=== PATIENT | male | born 1990 | race Hispanic/Latino ===

== ENCOUNTER 2025-01-26 20:07 | Emergency (ER) | payer OTHER ==
[~2025-01-26] VITALS: Ht 170.2 cm; Wt 112.6 kg
[2025-01-26] MEDS ORDERED: COREG6.25 MG PO (20:17)
[2025-01-26] MEDS ORDERED: ALPRAZOLAM2 MG PO (20:17)
[2025-01-26] MEDS ORDERED: HYDROCHLOROTH12.5 MG PO (20:17)
[2025-01-26] MEDS ORDERED: COZAAR50 MG PO (20:17)
[2025-01-26] MEDS ORDERED: FARXIGA10 MG PO (20:18)
[2025-01-26] MEDS ORDERED: LIPITOR10 MG GT (20:18)
[2025-01-26 20:25] LABS: BASOPHILS 0.6 % (0.2-1.2); EOSINOPHILS 1.5 % (0.8-7.0); LYMPHOCYTES 17.9 % (21.8-53.1); MCH 27.5 PG (25.7-32.2); MCHC 31.8 g/dL (32.3-36.5); MCV 86.4 fL (79.0-92.2); MONOCYTES 7.3 % (5.3-12.2); NEUTROPHILS 72.0 % (34.0-67.9); RBC 5.53 M/uL (4.63-6.08)
[2025-01-26] MEDS ORDERED: ASPIRIN 81 MG CHEW PO ONE (20:30)
[2025-01-26] MEDS ORDERED: NITROGLYCERIN 0.4 MG SUBL SL PRN (20:30)
[2025-01-26 20:41] LABS: ALT (SGPT) 28 U/L (14-59); AST (SGOT) 16 U/L (15-37); GLOMERULAR FILTRATION RATE,EST 121 mL/min (>60); PROTEIN, TOTAL 7.8 g/dL (6.4-8.2); UREA NITROGEN 16 mg/dL (7-18)
[2025-01-26 22:15] LABS: BLOOD/HGB, URINE NEGATIVE (Negative); KETONE, URINE NEGATIVE (Negative); LEUK ESTERASE, URINE NEGATIVE (negative); NITRITE, URINE NEGATIVE (negative)
[2025-01-26 22:30] LABS: AMPHETAMINES, URINE NEGATIVE (NEGATIVE); BARBITURATES, URINE NEGATIVE (NEGATIVE); BENZODIAZEPINE, URINE POSITIVE (NEGATIVE); CANNABINOID, URINE NEGATIVE (NEGATIVE); COCAINE, URINE NEGATIVE (NEGATIVE); ECSTASY, URINE NEGATIVE (NEGATIVE); FENTANYL, URINE NEGATIVE (NEGATIVE); METHADONE, URINE NEGATIVE (NEGATIVE); OPIATES, URINE NEGATIVE (NEGATIVE); OXYCODONE, URINE NEGATIVE (NEGATIVE); PHENCYCLIDINE, URINE NEGATIVE (NEGATIVE)
--- OUTSIDE RECORDS SUMMARY | 2025-01-26 22:50 | XMS ---
PreManage Notification: YOLI BASSETT Security Floor Helper Events No recent Security Events currently on file CRITERIA MET - PDMP - [facility] - 2 Visits in 30 Days - [facility] - 3 Facilities in 90 Days CARE PROVIDERS RENA NINO Community Health Worker 07/02/2019-Current PHONE: [phone] -, [facility]: Employee Benefits Specialist Current [place] PHONE: [phone] [facility] CARE SYSTEM \F\ <UNAVAIL> PHONE: [phone] Ivory Mora Nurse Practitioner: Family Current [employer] PHONE: Unknown Lilliana has no Care Guidelines for this patient. Jose VISIT COUNT (12 MO.) 6 [employer] [facility] 2 [facility] [address] Vin Guerrero [address] [place] [address] TOTAL 10 NOTE: Visits indicate total known visits. ED/UCC VISIT TRACKING (12 MO.) 01/26/2025:08 [facility] TYPE: Emergency COMPLAINT: - CHEST PAIN 01/06/2025 19:52 [facility] [place] TYPE: Emergency DIAGNOSES: - Acute pharyngitis, unspecified - Postnasal drip - Unspecified nonsuppurative otitis media, bilateral - SORE THROAT 12/27/2024 23:22 [facility] [place] TYPE: Emergency DIAGNOSES: - Anxiety disorder, unspecified - Other fdc (current) drug therapy - SOB 11/05/2024 23:30 [facility] [place] [facility] DIAGNOSES: - Generalized anxiety disorder - Other chest pain - Flank Pain - Shortness of Breath - SOB 10/01/2024 18:11 [employer] [email or web address] DIAGNOSES: - Anxiety disorder, unspecified - Chest pain, unspecified - Dyspnea, unspecified - SOB 05/20/2024 06:16 [employer] [facility] [place] TYPE: Emergency DIAGNOSES: - Angioneurotic edema, initial encounter - sore throat; shortness of breath 05/15/2024 11:20 [facility] TYPE: Emergency DIAGNOSES: - Carpal tunnel syndrome, bilateral upper limbs - Polyneuropathy, unspecified - Chest Pain - Numbness - Shortness of Breath 04/24/2024 11:35 [facility] [facility] [place] TYPE: Emergency DIAGNOSES: - Chest pain, unspecified - CHEST PAIN [facility]24 16[facility] DIAGNOSES: - Acute cystitis with hematuria - Epididymitis - Dysuria - Dysuria; Hematuria - Flank Pain - Hematuria 02/05/2024 14:27 [facility] [place] TYPE: Emergency DIAGNOSES: - Chest pain, unspecified - CHEST PAIN INPATIENT VISIT TRACKING (12 MO.) No inpatient visits to display in this time frame [email or web address]
[2025-01-26] MEDS ORDERED: HYDROXYZINE HCL25 MG PO (22:51)
[2025-01-26 23:04] VITALS: BP 118/65
--- NOTE | 2025-01-27 13:57 | EKG ---
[facility] [address] [place] [address] Signed Sinus rhythm with short DE Minimal voltage criteria for LVH, may be normal variant ( R in aVL ) Lateral infarct , age undetermined Inferior infarct , age undetermined Abnormal ECG No previous ECGs available Confirmed by Mi Hebert MD () on 01/27/2025 1:57:20 PM Electronically Signed By: MI HEBERT MD 01/27/25 1357 PATIENT NAME: YOLI BASSETT Electrocardiogram DATE OF : 89 PHYSICIAN: MI HEBERT MD REPORT #: [id number] REPORT IS CONFIDENTIAL AND NOT TO BE RELEASED WITHOUT AUTHORIZATION
== END 2025-01-26 23:05 | disposition home or self-care (01) ==
LOC: ED 20:07
PROVIDERS: Internal Medicine
DX: F41.9 Anxiety disorder, unspecified (principal); R07.89 Other chest pain; I10 Essential (primary) hypertension
CPT/HCPCS: 36415; 71045; 80053; 80307; 81003; 83735; 84484; 85025; 93005; 93010; 99285-25; A9270